=== PATIENT | male | born 1945 | race Caucasian/White ===

== ENCOUNTER 2018-06-21 21:05 | Emergency (ER) | payer MEDICARE ==
[~2018-06-21 21:05] MED LIST: Metoprolol Tartrate 5 MG/5 ML VIAL ONE
[2018-06-21 21:42] LABS: #Basophils 0.1 thou/uL (0.0-0.2); #Eosinphils 0.8 thou/uL (0.0-0.7); #Lymphocytes 2.7 thou/uL (1.20-3.40); #Monocytes 0.7 thou/uL (0.11-0.59); #Neutrophils 3.8 thou/uL (1.40-6.50); %Basophils 1.5 % (0.0-1.0); %Eosinophils 9.8 % (0.0-10.0); %Lymphocytes 33.4 % (21.0-51.0); %Monocytes 8.3 % (0.0-10.0); %Neutrophils 46.9 % (42.0-75.0); Hemoglobin 14.6 g/dL (14.0-18.0); Mean Corpuscular HGB CONC 33.5 g/dL (32.0-36.0); Mean Corpuscular Volume 92.4 fL (78.0-98.0); Mean Platelet Volume 10.2 fL (7.4-10.4); Platelet Count 198 thou/uL (130-400); RBC Distribution Width 11.4 % (11.5-14.5); White Blood Cell (WBC) Count 8.1 thou/uL (4.8-10.8)
[2018-06-21 22:04] LABS: CKMB 3.7 ng/mL (0-6.6); Troponin I Less than 0.010 ng/mL (< 0.028)
[2018-06-21 22:05] LABS: AST (SGOT) 24 U/L (5-34); Albumin 4.9 g/dL (3.4-4.8); Anion Gap 12 mmol/L (10-20); BUN (Urea Nitrogen) 27 mg/dL (8.4-25.7); Bilirubin, Total 0.4 mg/dL (0.2-1.2); Calc. Creatinine Clearance 0 mL/min (70-130); Calcium 10.9 mg/dL (7.8-10.44); Carbon Dioxide 28 mmol/L (23-31); Estimated GFR-MDRD 56; Globulin 2.7 g/dL (2.4-3.5); Glucose 134 mg/dL (83-110); Lipase 48 U/L (8-78); Potassium 4.4 mmol/L (3.5-5.1); Protein, Total 7.6 g/dL (5.8-8.1)
[2018-06-21 22:08] LABS: Chloride 108 mmol/L (98-107); Sodium 144 mmol/L (136-145)
--- NOTE | 2018-06-21 22:46 | RAD ---
AP VIEW CHEST: INDICATIONS: Chest pain. COMPARISON: None. FINDINGS: There are low lung volumes. No consolidation, pleural effusion, or pneumothorax is evident. No acut e osseous abnormality is evident. IMPRESSION: No acute cardiopulmonary abnormality. POS: [facility]
[2018-06-22 08:13] LABS: Alkaline Phosphatase 78 U/L (40-150)
[2018-06-22 08:18] LABS: ALT (SGPT) 41 U/L (8-55)
== END 2018-06-21 22:45 | disposition short-term general hospital (02) ==
LOC: MADERS 21:05
DX: R07.2 Precordial pain (principal); Z79.82 Long term (current) use of aspirin
CPT/HCPCS: 71045; 80053; 82553; 83690; 83880; 84484; 85025; 93005; 94760; 96374